=== PATIENT | male | born 1985 | race American Indian/Alaskan Native ===

== ENCOUNTER 2016-08-18 12:34 | Emergency (ER) | payer BC ==
[2016-08-18 12:42] VITALS: BP 128/89
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
[2016-08-18] MEDS ORDERED: CLEOCIN IM ONE (13:22)
[2016-08-18] MEDS ORDERED: TORADOL IM ONE (13:23)
== END 2016-08-18 14:15 | disposition home or self-care (01) ==
LOC: ED 12:34
DX: K04.7 Periapical abscess without sinus (principal); M25.511 Pain in right shoulder; G89.29 Other chronic pain; F17.200 Nicotine dependence, unspecified, uncomplicated
CPT/HCPCS: 96372; 99282; J1885

== ENCOUNTER 2017-08-10 05:52 | Emergency (ER) | payer SELFPAY ==
[2017-08-10 06:36] VITALS: BP 122/78
--- NOTE | 2017-08-10 07:28 | XRay Report ---
ROUTINE CHEST, TWO VIEWS: HISTORY: Shortness of breath. The trachea, heart, mediastinal contour, lung gibson and bony thorax are unremarkable. IMPRESSION: Unremarkable chest x-ray.
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
== END 2017-08-10 10:12 | disposition home or self-care (01) ==
LOC: ED 05:52
DX: R07.89 Other chest pain (principal); R00.0 Tachycardia, unspecified; R06.02 Shortness of breath; M25.512 Pain in left shoulder; M25.511 Pain in right shoulder; F17.200 Nicotine dependence, unspecified, uncomplicated; Z79.899 Other long term (current) drug therapy
CPT/HCPCS: 71046; 93005; 93010; 99283

== ENCOUNTER 2018-03-03 10:24 | Emergency (ER) | payer BC ==
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
== END 2018-03-03 11:52 | disposition home or self-care (01) ==
LOC: ED 10:24
CPT/HCPCS: 99281

== ENCOUNTER 2020-04-08 09:49 | Emergency (ER) | payer BC ==
[2020-04-08 09:55] VITALS: BP 130/74
--- NOTE | 2020-04-08 10:23 | Emergency Department Report ---
Chief Complaint: Headache Stated Complaint: arm leg pains Time Seen by Provider: 04/08/20 10:17 - HPI History of Present Illness: pt is a 34 yo male who presents to the ED with c/o generalized body aches since 2014. he states he feels it in his BUE and BLE. he denies any swelling of the BUE/BLE, skin changes, erythema, increased warmth, n/v/d, fever, diaphoresis, back pain, dark urine, urinary frequency. no pmhx. no allergies to meds. he has not followed up with a primary care doctor. he has been seen in the ED in the past for this complaint and never followed up. VSS on exam: non toxic appearing, no acute distress atraumatic, normocephalic normal appearance of the eyes, EOMI, no periorbital edema or erythema moist mucus membranes breath sounds are clear bilaterally, no wheezing, no rales, no rhonchi regular heart rate and rhythm, no gallops, no murmurs, no rubs joints are non tender, no edema, no erythema, FROM of the BUE/BLE, neurovasculalry intact A&Ox4, no focal neuro deficit, normal gait skin is warm, dry, intact pt is presenting for chronic body aches since 2014 he has not followed up with a PCP has been seen in the ED in the past for same complaint has had no trauma no clinical s/sx of rhabdo no signs of DVT or arterial occlusion pt will be referred to PCP for further evaluation discussed strict return precautions medical screening exam performed and there is no threat to life or limb at this time - Exam Vital Signs: Vital Signs 04/08/20 09:52 Temperature 97.8 F Pulse Rate 95 H Respiratory 16 Rate Blood Pressure 130/74 [Right] O2 Sat by Pulse 100 Oximetry MSE screening note: Focused history and physical exam performed. Due to findings the following was ordered: ED Disposition for MSE Clinical Impression: Myalgia Disposition: MED SCREENING EXAM-LEFT Is pt being admited?: No Does the pt Need Aspirin: No Condition: Stable Instructions: Musculoskeletal Pain Additional Instructions: please follow up with a primary care doctor. return to the emergency room for any new or worsening symptoms. Referrals: STALIN FLOWERS MD [Staff Physician] - 3-5 Days [facility] [Provider Group] - 3-5 Days [facility], [LAB/CONTRACT] - 3-5 Days [facility] [Outside] - 3-5 Days Time of Disposition: 10:21 Print Language: FRISIAN
== END 2020-04-08 11:30 | disposition left against medical advice (07) ==
LOC: ED 09:49
DX: M79.10 Myalgia, unspecified site (principal); Z53.21 Procedure and treatment not carried out due to patient leaving prior to being seen by health care provider